=== PATIENT | female | born 1940 | race Caucasian/White ===

== ENCOUNTER 2022-04-21 08:00 | Outpatient (CLI) | payer OTHER ==
[2022-04-21 18:03] LABS: BASOPHILS % (AUTO) 0.5 %; EOSINOPHILS # (AUTO) 0.1 10^3/uL (0.0-0.7); EOSINOPHILS % (AUTO) 1.4 %; HCT - HEMATOCRIT 37.7 % (37.0-47.0); HGB - HEMOGLOBIN 11.7 g/dL (12.0-16.0); LYMPHOCYTES # (AUTO) 1.5 10^3/uL (1.5-3.5); LYMPHOCYTES % (AUTO) 18.2 %; MEAN CORPUSCULAR HEMOGLOBIN 27.8 pg (27.0-31.0); MEAN CORPUSCULAR VOLUME 89.5 fL (81.0-99.0); MEAN PLATELET VOLUME 10.4 fL (7.9-10.8); MONOCYTES # (AUTO) 0.6 10^3/uL (0.0-1.0); MONOCYTES % (AUTO) 6.6 %; NEUTROPHILS # (AUTO) 6.2 10^3/uL (1.5-6.6); NEUTROPHILS % (AUTO) 72.7 %; PLT - PLATELET COUNT 354 10^3/uL (130-450); RED BLOOD COUNT 4.21 10^6/uL (4.20-5.40); RED CELL DISTRIBUTION WIDTH 15.4 % (12.0-15.0); WHITE BLOOD COUNT 8.5 x10^3/uL (4.8-10.8)
[2022-04-21 18:10] LABS: INR 2.6 (0.8-1.2); PT - PROTHROMBIN TIME 27.4 secs (9.9-12.6)
[2022-04-21 18:19] LABS: ALBUMIN 3.5 g/dL (3.2-5.5); ALBUMIN/GLOBULIN RATIO 1.1 (1.0-2.2); BILIRUBIN,TOTAL 0.7 mg/dL (0.2-1.0); CALCIUM 9.1 mg/dL (8.5-10.3); CREATININE 0.6 mg/dL (0.4-1.0); TOTAL PROTEIN 6.7 g/dL (6.7-8.2)
[2022-04-21 18:31] LABS: THYROID STIMULATING HORMONE 3.2 uIU/mL (0.34-5.60)
== END 2022-04-21 23:59 | disposition home or self-care (01) ==
LOC: LAB.N 08:00
PROVIDERS: ATTEND Family Medicine
DX: I10 Essential (primary) hypertension (principal); E03.9 Hypothyroidism, unspecified; D68.59 Other primary thrombophilia
CPT/HCPCS: 36415; 80053; 84443; 85025; 85610

== ENCOUNTER 2022-04-21 15:52 | Outpatient (CLI) | payer OTHER ==
--- NOTE | 2022-04-21 16:56 | XRAY Report ---
PROCEDURE: Tib/Fib RT INDICATIONS: UNSPECIFIED FRACTURE OF SHAFT OF RIGHT TIBIA TECHNIQUE: 2 views of the tibia and fibula were acquired. COMPARISON: None FINDINGS: Bones: There is a comminuted fracture of the proximal right fibular diaphysis. There is a comminuted fracture of the proximal fibular diaphysis with intramedullary nail present. There is approximately 1 .1 cm of anterior diastases of the distal tibial fracture fragment with respect to the proximal fragm ent. No callus visualized. Soft tissues: No suspicious soft tissue calcifications or masses. IMPRESSION: Postoperative change as above. No prior comparisons are available. No callus visualized. Reviewed by: Kerri Dailey MD on 04/21/2022 4:55 PM PST Approved by: Kerri Dailey MD on 04/21/2022 4:55 PM PST Station ID: [id number]
== END 2022-04-21 15:53 | disposition home or self-care (01) ==
LOC: DI 15:52
PROVIDERS: ATTEND Family Medicine
DX: S82.201D Unspecified fracture of shaft of right tibia, subsequent encounter for closed fracture with routine healing (principal); I10 Essential (primary) hypertension; E03.9 Hypothyroidism, unspecified; D68.59 Other primary thrombophilia
CPT/HCPCS: 36415; 80053; 84443; 85025; 85610

== ENCOUNTER 2022-04-29 10:03 | Emergency (ER) | payer OTHER ==
--- NOTE | 2022-04-29 11:07 | ED Physician Documentation ---
PD HPI LOWER EXT INJURY - Stated complaint Stated Complaint: RT LEG PX/DISCOMFORT - Chief complaint Chief Complaint: Ext Problem - History obtained from History obtained from: Patient, Family (son) - History of Present Illness PD HPI LOW EXT INJURY LOCATION: Right, Lower leg Type of injury: Twist (she states her lower leg fractured when her fell onto it accidentally. She had tami and fixature in [place] day after deborah (so over 3 weeks ago) and had suture removal 10 days ago approx. She is still in hinged knee brace that is not fitting/working well. Also has not had dressing change.) Where injury occurred: Home (in [place]. Her just after the injury. She is up here to [place] to be with her son. The insurance was group insurance t hrough her , so she is off the insurance now until May when new policy of hers starts. Meanwhile, cannot get rehab/SNF as was planned for 20 days. With son now) Associated symptoms: No: Weakness, Numbness, Swelling Recently seen: Surgery Review of Systems Constitutional: denies: Fever, Chills Cardiac: denies: Chest pain / pressure Respiratory: denies: Dyspnea, Cough Musculoskeletal: denies: Extremity swelling Neurologic: denies: Focal weakness, Numbness PD PAST MEDICAL HISTORY - Allergies Allergies/Adverse Reactions: Allergies Allergy/AdvReac Type Severity Reaction Status Date / Time No Known Drug Allergies Allergy Verified 04/29/22 10:24 PD ED PE NORMAL - Vitals Vital signs reviewed: Yes - General General: Alert and oriented X 3, No acute distress, Well developed/nourished, Other (she has dressing and niraj wrap on right lower leg. Knee brace hinged is on right leg but loose and the hinge is about 5 inches too low. The brace is not on correctly. ) - Cardiac Cardiac: RRR, No murmur - Respiratory Respiratory: Clear bilaterally - Abdomen Abdomen: Soft, Non tender - Derm Derm: Normal color, Warm and dry - Extremities Extremities: No edema, No calf tenderness / cord (there is mild tenderness mid calf medial aspect more so around where knee brace was rubbing. Not calf tender per se. ), Other (the srugical wounds are looking good with steristrips in place. No signs of infection. ) - Neuro Neuro: Alert and oriented X 3, No motor deficit, No sensory deficit, Normal speech Results - Vitals Vitals: Vital Signs - 24 hr 04/29/22 04/29/22 10:16 13:25 Temperature 36.2 C L 36.5 C Heart Rate 65 66 Respiratory 16 16 Rate Blood Pressure 138/62 H 130/60 O2 Saturation 98 100 Oxygen O2 Source Room air - Labs Labs: Laboratory Tests 04/29/22 11:34 INR (Fingerstick) 3.1 H PD Medical Decision Making - ED course Complexity details: considered differential (she has not been doing dressing changes as that was supposed to be done in Rehab/snP, so does not have instructions per se. Her splint is not on correctly and one strap appears to be broken/cut. We can replace dressing and place new brace. She and son given instructions about skin care/brace/etc. ), d/w patient Reviewed Lab Results: hardware in place and appears appripriate early healing. Social Determinants of Health: her [employer] insurance ended when her end of March and new policy does not start until May 12. So is unable to get appts with ortho here nor any PT/SNF for rehab as yet. Departure - Departure Disposition: Home, Self Care Clinical Impression: Encounter for postoperative wound check Condition: Stable Record reviewed to determine appropriate education?: Yes Follow-Up: Marisela Velásquez MD [Primary Care Provider] - Abdiel Garcia MD [Provider Admit Priv/Credential] - Comments: You can take off the dressings on the wounds daily and clean around with soap and water but mainly keep the Steri-Strips dry for now until they fall off on their own and the coming week. You can use some skin lotion to help with the dryness. Redress it after would and resume the splint. We did show you how to place it and adjust it. Its okay to have your splint off at times for changing close and cleansing/shower. Try to avoid water directly onto the Steri-Strips but it is okay if they get just slightly damp. Your x-ray still appears appropriate healing and placement of the tami and healing of the fracture. It is okay for toe touching/light weightbearing for pivot and transfer. Otherwise continue with the walker for balance and pivoting and the wheelchair otherwise for getting around. Follow-up with orthopedics in the next week or so for a follow-up. Continue with your other usual medicines. At this point the wounds appear good without any signs of infection. Follow-up with your primary or back here in the ER if you develop increasing pain swelling or tenderness in the calf or lower leg. Discharge Date/Time: 04/29/22 13:25
--- NOTE | 2022-04-29 12:04 | XRAY Report ---
PROCEDURE: Tib/Fib RT INDICATIONS: post fracture repair. stood on leg, inc pain. TECHNIQUE: 2 views of the tibia and fibula were acquired. COMPARISON: 04/21/2022 FINDINGS: Bones: Intramedullary tami within the tibia is present, as before. Displacement and mild angulation of the proximal tibial fracture is unchanged. No significant change in moderately displaced comminuted segmental fracture of the proximal fibula. Soft tissues: No suspicious soft tissue calcifications or masses. IMPRESSION: No significant change compared to 04/21/2022. Reviewed by: Jason Wiley MD on 04/29/2022 12:02 PM PST Approved by: Jason Wiley MD on 04/29/2022 12:02 PM PST Station ID: [id number]
[2022-04-29 13:26] VITALS: BP 130/60
== END 2022-04-29 13:25 | disposition home or self-care (01) ==
LOC: ED 10:03
DX: Z48.01 Encounter for change or removal of surgical wound dressing (principal); Z46.89 Encounter for fitting and adjustment of other specified devices; S82.101D Unspecified fracture of upper end of right tibia, subsequent encounter for closed fracture with routine healing; W50.0XXD Accidental hit or strike by another person, subsequent encounter
CPT/HCPCS: 36416; 85610; 99283; 99284

== ENCOUNTER 2022-05-17 12:40 | Outpatient (CLI) | payer OTHER ==
--- NOTE | 2022-05-17 13:16 | XRAY Report ---
PROCEDURE: Tib/Fib RT INDICATIONS: RIGHT TIBIA ORIF TECHNIQUE: 2 views of the tibia and fibula were acquired. COMPARISON: X-ray Tib-fib 04/21/2022, 04/29/2022 FINDINGS: Bones: There is a displaced proximal fibular shaft fracture with stable alignment. Fracture lucencies are slightly less prominent. Tibial fixation hardware is stable. Hardware is intact without evidence of hardware fracture or periprosthetic lucency to suggest loosening. Fracture lucency within the pro ximal tibial shaft is stable in alignment with lucencies are slightly less visible. No suspicious bon y lesions. Soft tissues: No suspicious soft tissue calcifications or masses. IMPRESSION: Stable alignment of tibia and fibular fractures. Its noted fracture lucencies appear slightly less vi sible possibly secondary to healing versus projection. Reviewed by: Nohemi Figueroa MD on 05/17/2022 1:15 PM PST Approved by: Nohemi Figueroa MD on 05/17/2022 1:15 PM PST Station ID: [id number]
== END 2022-05-17 12:41 | disposition home or self-care (01) ==
LOC: DI.WOS 12:40
PROVIDERS: ATTEND Physician Assistant Surgical
DX: S82.401D Unspecified fracture of shaft of right fibula, subsequent encounter for closed fracture with routine healing (principal); S82.201D Unspecified fracture of shaft of right tibia, subsequent encounter for closed fracture with routine healing

== ENCOUNTER 2022-06-22 10:29 | Outpatient (CLI) | payer MEDICARE ==
--- NOTE | 2022-06-22 18:05 | XRAY Report ---
PROCEDURE: Hips 2V BILAT INDICATIONS: HIP PAIN TECHNIQUE: 4 views of the hip were acquired. COMPARISON: 04/03/2022 FINDINGS: Bones: Prior right total hip arthroplasty is noted. Right hip alignment is anatomic. No gross hardwa re loosening or failure. Severe left hip joint osteoarthritic changes are seen. No fractures or dislo cations. The vascular necrosis of femoral head cannot be excluded. No suspicious bony lesions. The visualized pelvic ring appears intact. Soft tissues: No suspicious soft tissue calcifications or masses. IMPRESSION: 1. Prior right total hip arthroplasty with anatomic right hip alignment. No evidence of hardware loos ening or failure. No fracture or dislocation. 2. Severe left hip joint osteoarthritis. No hip fracture or dislocation. No avascular necrosis of fem oral head cannot be excluded. Diffuse osteopenia. Reviewed by: Ankush Moseley MD on 06/22/2022 6:04 PM PDT Approved by: Ankush Moseley MD on 06/22/2022 6:04 PM PDT Station ID: [id number]
== END 2022-06-22 10:30 | disposition home or self-care (01) ==
LOC: DI 10:29
PROVIDERS: ATTEND Internal Medicine
DX: M16.12 Unilateral primary osteoarthritis, left hip (principal); M25.551 Pain in right hip; M85.88 Other specified disorders of bone density and structure, other site; Z96.641 Presence of right artificial hip joint

== ENCOUNTER 2022-06-29 08:00 | Outpatient (CLI) | payer MEDICARE ==
--- NOTE | 2022-06-29 16:20 | XRAY Report ---
PROCEDURE: Tib/Fib RT INDICATIONS: TIBIA ORIF TECHNIQUE: 2 views of the tibia and fibula were acquired. COMPARISON: 2 views of the right tibia and fibula dated 05/17/2022 FINDINGS: Bones: ORIF of the right tibia is redemonstrated. Fracture fragments are in unchanged anatomic alignm ent. There is increased callus when compared with the prior study. Soft tissues: No suspicious soft tissue calcifications or masses. IMPRESSION: Continued interval healing of the right tibial ORIF. Reviewed by: Kerri Dailey MD on 06/29/2022 4:19 PM PDT Approved by: Kerri Dailey MD on 06/29/2022 4:19 PM PDT Station ID: [id number]
== END 2022-06-29 23:59 | disposition home or self-care (01) ==
LOC: DI.WOS 08:00
PROVIDERS: ATTEND Orthopaedic Surgery
DX: S82.201D Unspecified fracture of shaft of right tibia, subsequent encounter for closed fracture with routine healing (principal)

== ENCOUNTER 2022-08-12 08:00 | Outpatient (CLI) | payer MEDICARE ==
--- NOTE | 2022-08-12 15:10 | XRAY Report ---
PROCEDURE: Tib/Fib RT INDICATIONS: RIGHT TIBLA ORIF TECHNIQUE: 2 views of the tibia and fibula were acquired. COMPARISON: None. FINDINGS: Bones: Prior tibia ORIF, with intramedullary tami and screw fixation. No hardware complication. Tibia and fibula fracture sites are unchanged. Soft tissues: No suspicious soft tissue calcifications or masses. IMPRESSION: Tibia ORIF, without hardware complication. Reviewed by: Ulises Bonilla on 08/12/2022 3:09 PM PDT Approved by: Ulises Bonilla on 08/12/2022 3:09 PM PDT Station ID: [id number]
== END 2022-08-12 23:59 | disposition home or self-care (01) ==
LOC: DI.WOS 08:00
PROVIDERS: ATTEND Orthopaedic Surgery
DX: S82.201D Unspecified fracture of shaft of right tibia, subsequent encounter for closed fracture with routine healing (principal); S82.401D Unspecified fracture of shaft of right fibula, subsequent encounter for closed fracture with routine healing

== ENCOUNTER 2022-08-30 08:00 | Outpatient (CLI) | payer MEDICARE ==
--- NOTE | 2022-08-31 10:07 | XRAY Report ---
PROCEDURE: Shoulder 3 View RT INDICATIONS: RIGHT SHOULDER PAIN TECHNIQUE: 4 views of the shoulder were acquired. COMPARISON: None. FINDINGS: Bones: There is old humeral neck fracture. No fractures or dislocations. No suspicious bony lesions. Moderate arthritic changes are present in glenohumeral joint. Visualized ribs appear intact. Soft tissues: No suspicious soft tissue calcifications. IMPRESSION: 1. Old humeral neck fracture. 2. Moderate osteoarthritis. Reviewed by: Naina Chiu MD on 08/31/2022 10:05 AM PDT Approved by: Naina Chiu MD on 08/31/2022 10:05 AM PDT Station ID: [id number]
== END 2022-08-30 23:59 | disposition home or self-care (01) ==
LOC: DI.WOS 08:00
PROVIDERS: ATTEND Orthopaedic Surgery
DX: M19.011 Primary osteoarthritis, right shoulder (principal); S42.211D Unspecified displaced fracture of surgical neck of right humerus, subsequent encounter for fracture with routine healing

== ENCOUNTER 2022-10-14 12:44 | Outpatient (CLI) | payer MEDICARE ==
--- NOTE | 2022-10-14 16:17 | DEXA Report ---
PROCEDURE: Dexa Spine and/or Hip INDICATIONS: MENOPAUSAL TECHNIQUE: Dual energy x-ray absorptiometry (DXA) was performed on a [employer] System. Regions measur ed are the AP Spine, femoral neck, and if needed forearm. COMPARISON: None. FINDINGS: Lumbar Spine: Bone Mineral Density 0.877 g/cm/cm,T score -2.5. Left Femoral Neck: Bone Mineral Density 0.848 g/cm/cm, T score -1.4. Left Hip: Bone Mineral Density 0.800 g/cm/cm,T score -1.6. (T score greater or equal to -1.0: NORMAL) (T score from -1.1 to -2.4: OSTEOPENIA) (T score less than or equal to -2.5 to: OSTEOPOROSIS) Impression: By WHO criteria, this patient has osteoporosis. Patients with diagnosis of osteoporosis or osteopenia should have regular bone mineral density assess ment. For those eligible for Medicare, routine testing is allowed once every 2 years. Testing frequ ency can be increased for patients who have rapidly progressing disease or for those who are receivin g medical therapy to restore bone mass. Reviewed by: Paulo Song MD on 10/14/2022 4:16 PM PDT Approved by: Paulo Song MD on 10/14/2022 4:16 PM PDT Station ID: [id number]
== END 2022-10-14 12:45 | disposition home or self-care (01) ==
LOC: DI 12:44
PROVIDERS: ATTEND Internal Medicine
DX: N95.9 Unspecified menopausal and perimenopausal disorder (principal); M81.0 Age-related osteoporosis without current pathological fracture

== ENCOUNTER 2022-11-09 08:00 | Outpatient (CLI) | payer MEDICARE ==
--- NOTE | 2022-11-09 15:53 | XRAY Report ---
PROCEDURE: Foot 3 View RT INDICATIONS: RIGHT FOOT PAIN AND SWELLING TECHNIQUE: 3 views of the foot were acquired. COMPARISON: None. FINDINGS: Bones: No fractures or dislocations. No suspicious bony lesions. Scattered IP degenerative narrowing. Partially visualized distal tibial fixation. Soft tissues: No suspicious soft tissue calcifications or masses. IMPRESSION: Scattered IP narrowing. No visualized acute fracture or dislocation. However, occult injury cannot be excluded. Recommend short interval imaging follow-up in 7-10 days as clinically indicated for additi onal evaluation. Reviewed by: Nohemi Figueroa MD on 11/09/2022 3:52 PM PDT Approved by: Nohemi Figueroa MD on 11/09/2022 3:52 PM PDT Station ID: [id number]
--- NOTE | 2022-11-09 15:54 | XRAY Report ---
PROCEDURE: Tib/Fib RT INDICATIONS: RIGHT TIBIA ORIF TECHNIQUE: 2 views of the tibia and fibula were acquired. COMPARISON: X-ray tib-fib 08/12/2022 FINDINGS: Bones: ORIF of the tibia. Hardware is intact without evidence of hardware fracture or periprosthetic lucency to suggest loosening.. Previously identified proximal tibial fracture is present with incomp lete union. There is deformity of the proximal fibula consistent with old healed fracture. Soft tissues: No suspicious soft tissue calcifications or masses. IMPRESSION: Stable appearance of tibial fixation with incomplete osseous union. Reviewed by: Nohemi Figueroa MD on 11/09/2022 3:53 PM PDT Approved by: Nohemi Figueroa MD on 11/09/2022 3:53 PM PDT Station ID: [id number]
== END 2022-11-09 23:59 | disposition home or self-care (01) ==
LOC: DI.WOS 08:00
PROVIDERS: ATTEND Physician Assistant Surgical
DX: S82.201D Unspecified fracture of shaft of right tibia, subsequent encounter for closed fracture with routine healing (principal); S82.401D Unspecified fracture of shaft of right fibula, subsequent encounter for closed fracture with routine healing

== ENCOUNTER 2023-01-11 08:00 | Outpatient (CLI) | payer OTHER ==
--- NOTE | 2023-01-11 17:36 | XRAY Report ---
PROCEDURE: Tib/Fib RT INDICATIONS: RIGHT TIBIA ORIF TECHNIQUE: 2 views of the tibia and fibula were acquired. COMPARISON: 11/09/2022. FINDINGS: Bones: Again noted is prior internal fixation of tibial shaft with surgical hardware in place. No gr oss hardware loosening or failure is seen. There is interval further healing at proximal tibial shaft fracture site with partial bony union. Chronic appearing proximal fibular shaft fracture is again se en with unchanged alignment compared to prior study. No new fracture or dislocation. No suspicious abhilash ny lesions. Soft tissues: No suspicious soft tissue calcifications or masses. IMPRESSION: Interval healing at proximal tibial shaft fracture site. Prior ORIF. No gross hardware loosening or f ailure. No new fracture or dislocation. Stable appearance of proximal fibular shaft deformity. Reviewed by: Ankush Moseley MD on 01/11/2023 5:35 PM PDT Approved by: Ankush Moseley MD on 01/11/2023 5:35 PM PDT Station ID: [id number]
== END 2023-01-11 23:59 | disposition home or self-care (01) ==
LOC: DI.WOS 08:00
PROVIDERS: ATTEND Orthopaedic Surgery
DX: S82.101D Unspecified fracture of upper end of right tibia, subsequent encounter for closed fracture with routine healing (principal); S82.491D Other fracture of shaft of right fibula, subsequent encounter for closed fracture with routine healing

== ENCOUNTER 2023-04-15 14:41 | Outpatient (CLI) | payer OTHER | END 2023-04-15 14:42 | disposition home or self-care (01) | LOC: LAB 14:41 | PROVIDERS: ATTEND Internal Medicine | DX: Z51.81 Encounter for therapeutic drug level monitoring (principal); Z79.01 Long term (current) use of anticoagulants | CPT/HCPCS: 36416; 85610 ==

== ENCOUNTER 2023-09-23 14:34 | Outpatient (CLI) | payer MEDICARE ==
--- NOTE | 2023-09-23 20:42 | CT Report ---
PROCEDURE: Lower Extremity RT WO INDICATIONS: TIBIAL DEFORMITY TECHNIQUE: Noncontrast 3-mm axial sections acquired from the distal tibial shaft to the talar dome, with coronal and sagittal reformats. For radiation dose reduction, the following was used: automated exposure c ontrol, adjustment of mA and/or kV according to patient size. COMPARISON: Right tibia/fibular radiographs 01/11/2023 and 11/09/2022 FINDINGS: Image quality: Excellent. Bones: Postsurgical changes are again seen from proximal tibial shaft fracture fixation with an intr amedullary nail with proximal and distal locking screws. The fracture appears healed with mild residu al deformity including mild anterior displacement and posterior angulation of the distal shaft compon ent. The distal fracture fragment components also appear mildly externally rotated relative to the ti bial plateau. Healed proximal fibular fracture deformity is seen at the same level. No acute osseous fracture. No suspicious osseous lesion. Soft tissues: Moderate knee effusion. Small medial popliteal cyst. Mild grade 2 fatty infiltration o f the lower leg musculature. Nonspecific soft tissue edema seen surrounding the ankle. IMPRESSION: 1.Postsurgical changes from internal fixation of a proximal tibial fracture. Hardware components appe ar to be intact. 2.Proximal tibial and fibular fractures appear to be healed with residual deformity including lateral angulation and external rotation of the more distal components. Reviewed by: Paulo Song MD on 09/23/2023 8:41 PM PDT Approved by: Paulo Song MD on 09/23/2023 8:41 PM PDT Station ID: [id number]
== END 2023-09-23 14:35 | disposition home or self-care (01) ==
LOC: DI 14:34
PROVIDERS: ATTEND Orthopaedic Surgery Adult Reconstructive Orthopaedic Surgery
DX: M21.961 Unspecified acquired deformity of right lower leg (principal); S82.1 Fracture of upper end of tibia; S82.831S Other fracture of upper and lower end of right fibula, sequela; R41.3 Other amnesia; G31.89 Other specified degenerative diseases of nervous system

== ENCOUNTER 2023-09-23 14:37 | Outpatient (CLI) | payer MEDICARE ==
--- NOTE | 2023-09-23 15:45 | CT Report ---
PROCEDURE: Head WO INDICATIONS: MEMORY LOSS TECHNIQUE: Noncontrast 4.5 mm thick angled axial sections acquired from the foramen magnum to the vertex. For r adiation dose reduction, the following was used: automated exposure control, adjustment of mA and/or kV according to patient size. COMPARISON: None. FINDINGS: Image quality: Excellent. CSF spaces: Basal cisterns are patent. No extra-axial fluid collections. Ventricles are normal in size and shape. Brain: No midline shift. No intracranial masses or hemorrhage. Age-related global volume loss and chronic microvascular ischemic changes. Intracranial atherosclerotic vascular calcifications. Gusman-w dickson matter interface is normal. Skull and face: Calvarium and visualized facial bones are intact, without suspicious lesions. Bilate ral lens replacements. The orbits are otherwise normal in appearance. Sinuses: Visualized sinuses and mastoids are clear. IMPRESSION: Mild age-related global volume loss and chronic microvascular ischemic changes. No acute intracranial pathology. Reviewed by: Florian Peña MD on 09/23/2023 3:44 PM PDT Approved by: Florian Peña MD on 09/23/2023 3:44 PM PDT Station ID: [id number]
== END 2023-09-23 14:38 | disposition home or self-care (01) ==
LOC: DI 14:37
PROVIDERS: ATTEND Internal Medicine
DX: R41.3 Other amnesia (principal); G31.89 Other specified degenerative diseases of nervous system; I67.82 Cerebral ischemia